=== PATIENT | male | born 1980 | race Caucasian/White ===

== ENCOUNTER 2020-09-22 08:25 | Emergency (ER) | payer BC ==
[~2020-09-22] VITALS: Ht 188 cm; Wt 95.3 kg
[2020-09-22] MEDS ORDERED: FLEXERIL PO (09:17)
[2020-09-22] MEDS ORDERED: HYDROCODON-ACE1 EAC7 PO (09:17)
[2020-09-22 09:42] VITALS: BP 166/84
== END 2020-09-22 09:45 | disposition home or self-care (01) ==
LOC: M.ERS 08:25
DX: S39.012A Strain of muscle, fascia and tendon of lower back, initial encounter (principal); X50.9XXA Other and unspecified overexertion or strenuous movements or postures, initial encounter; Y93.89 Activity, other specified; Y92.89 Other specified places as the place of occurrence of the external cause; Y99.8 Other external cause status